=== PATIENT | female | born 1965 | race Caucasian/White ===

== ENCOUNTER 2022-09-03 08:08 | Outpatient (CLI) | payer BC, SELFPAY | END 2022-09-03 08:09 | disposition home or self-care (01) | PROVIDERS: PCP Family Medicine; Visit Provider Family Medicine | DX: M54.16 Radiculopathy, lumbar region (principal); M51.26 Other intervertebral disc displacement, lumbar region | CPT/HCPCS: 62323; J0702; Q9966 ==

== ENCOUNTER 2023-06-14 07:53 | Outpatient (CLI) | payer OTHER, SELFPAY | END 2023-06-14 07:54 | disposition home or self-care (01) | LOC: INJ CL 07:59 | PROVIDERS: PCP Family Medicine; Visit Provider Family Medicine | DX: M54.16 Radiculopathy, lumbar region (principal); M51.36 Other intervertebral disc degeneration, lumbar region | CPT/HCPCS: 62323; J0702; Q9966 ==